=== PATIENT | male | born 1990 | race Caucasian/White ===

== ENCOUNTER → 2016-10-01 | Outpatient (CLI) | payer BC | LOC: BMCIMAGING 15:17 | PROVIDERS: ATTEND Physician Assistant | DX: R07.89 Other chest pain (principal) | CPT/HCPCS: 71101-PO ==

== ENCOUNTER → 2017-01-07 | Outpatient (CLI) | payer BC | LOC: BMCIMAGING 10:13 | PROVIDERS: ATTEND Family Medicine | DX: M25.572 Pain in left ankle and joints of left foot (principal) ==